=== PATIENT | male | born 1970 | race American Indian/Alaskan Native ===

== ENCOUNTER 2018-02-18 09:37 | Outpatient (CLI) | payer OTHER ==
--- NOTE | 2018-02-18 19:15 | XRay Report ---
FINAL REPORT PROCEDURE: XR KNEE 4+V RT TECHNIQUE: Right knee radiographs, 4 or more views, including AP, lateral, and oblique views. HISTORY: RIGHT KNEE PAIN COMPARISON: No prior studies are available for comparison. FINDINGS: No fracture or dislocation is visualized. Small joint effusion is present. Moderate-sized marginal osteophytic spurs are visualized in the patellar femoral joint space. Small osteophytic spurs project in the medial and lateral compartment of the knee. The medial compartment of the knee is mildly narrowed. There is a metallic foreign body seen in the soft tissues posterior medial aspect of the knee measuring approximately 5 millimeters. 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 Small joint effusion is present. No acute bony abnormalities are seen. Small metallic foreign body seen in soft tissues posterior medial aspect of the knee.
== END 2018-02-18 09:38 | disposition home or self-care (01) ==
LOC: SPVIMAG 09:37
PROVIDERS: ATTEND Orthopaedic Surgery
DX: M17.11 Unilateral primary osteoarthritis, right knee (principal); M79.5 Residual foreign body in soft tissue